=== PATIENT | male | born 2000 | race Caucasian/White ===

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

== ENCOUNTER → 2021-05-23 20:08 | Outpatient (CLI) | payer OTHER, SELFPAY | PROVIDERS: Visit Provider Nurse Practitioner Family | DX: U07.1 COVID-19 (principal); J02.9 Acute pharyngitis, unspecified | CPT/HCPCS: C9803; U0003; U0005 ==

== ENCOUNTER 2022-09-06 15:16 | Emergency (ER) | payer OTHER, SELFPAY ==
[2022-09-06 15:17] VITALS: BP 144/75; PULSE 86; RESP 20; TEMP 38.4; O2SAT 96; BMI 28.7
[2022-09-06 15:41] LABS: UTC Strep Screen (Rapid) Positive (Negative)
--- NOTE | 2022-09-06 15:53 | EXP.UTC ---
Discharge Plan Disposition Patient Disposition: Home, Self-Care Condition: Good Prescriptions Prescriptions: New amoxicillin [amoxicillin] 875 mg tablet 875 mg PO Q12H Qty: 20 0RF [id number] [Bromfed DM] 2-30-10 mg/5 mL Syrup 5 ml PO Q6H PRN (Reason: Cough) Qty: 240 0RF prednisone 10 mg tablet 10 mg PO BID 3 Days Qty: 6 0RF Referrals Follow up/Referrals: Pop Palmer MD [Primary Care Provider] - See instructions Activity Restrictions/Add. Instructions Additional Instructions/Restrictions: Drink plenty of fluids. Take tylenol or ibuprofen for pain or fever. Take the medications as directed. Follow up with your regular doctor. GO TO THE ER FOR ANY WORSENING SYMPTOMS Throw your tooth brush away and get a new one. Clinical Impressions Clinical Impression: Strep throat Instructions Patient Instructions: DI for Strep Throat, Strep Throat Discharge ED Provider: Gino yT [facility] General Stated complaint: sore throat Time Seen by Provider: 09/06/22 15:52 History of Present Illness Provider Complaint: He states that he has had a sore throat for the past 2 days. He has been running a fever since last night. Related Data Previous Rx's Medication Instructions Recorded amoxicillin 875 mg tablet 875 mg PO Q12H #20 tabs 09/06/22 [id number] 5 ml PO Q6H PRN Cough #240 mL 09/06/22 2 mg-30 mg-10 mg/5 mL oral syrup (Bromfed DM) prednisone 10 mg tablet 10 mg PO BID 3 days #6 tabs 09/06/22 Allergies Allergy/AdvReac Type Severity Reaction Status Date / Time No Known Allergies Allergy Verified 09/06/22 15:54 [facility] Disclaimer: The information contained in this section may have been updated after the patient was seen, as this information can be updated by other users. Social History Smoking Status: Never smoker alcohol intake: never current occupational status: student Travel in the last 8 weeks: None ROS Obtained: Yes All systems reviewed & no additional complaints except as documented Constitutional Constitutional: Reports chills and Reports fever(s) Eyes Eyes: Denies eye discharge ENT Ears, Nose, Mouth, and Throat: Reports as per HPI Cardiovascular Cardiovascular: Denies chest pain Respiratory Respiratory: Denies chest congestion and Reports cough Gastrointestinal Gastrointestingal: Reports nausea; Denies abdominal pain, constipation, cramping, diarrhea or vomiting Musculoskeletal Musculoskeletal: Denies arthralgias Integumentary/Breasts Skin/Breast: Denies rash Neurologic Neurologic: Denies paresthesias Physical Exam General General appearance: alert and in no apparent distress Head Head exam: atraumatic, normocephalic and normal inspection Eye Eye exam: Present normal appearance, PERRL and EOMI ENT ENT exam: Present mucous membranes moist and normal external ear exam Expanded ENT Exam TM/Canal exam: Bilateral TM: erythema and bulging Nose exam: Absent sinus tenderness Mouth exam: Present normal external inspection; Absent drooling Teeth exam: Present normal inspection Throat exam: Present tonsillar erythema, tonsillomegaly and tonsillar exudate Neck Neck exam: Present normal inspection, full ROM and trachea midline; Absent tenderness, meningismus or lymphadenopathy Chest Chest inspection: Present normal inspection and symmetric chest wall rise; Absent tenderness Respiratory Respiratory exam: Present normal lung sounds bilaterally; Absent respiratory distress, wheezes or stridor Cardiovascular Cardiovascular exam: Present regular rate and normal rhythm; Absent systolic murmur or diastolic murmur Abdominal Exam Abdominal exam: Present soft and normal bowel sounds; Absent distention, tenderness, guarding, rebound or rigidity Extremities Exam Extremities exam: Present normal inspection and normal capillary refill; Absent calf tenderness Back Exam
[2022-09-06 16:17] VITALS: BP 144/75; PULSE 86; RESP 20; TEMP 37.3; O2SAT 96
== END 2022-09-06 16:17 | disposition home or self-care (01) ==
PROVIDERS: Emergency Provider Nurse Practitioner Family; PCP Internal Medicine Adolescent Medicine
DX: J02.0 Streptococcal pharyngitis (principal)
CPT/HCPCS: 87880; 99204; 99212; G0463

== ENCOUNTER 2023-05-10 09:17 | Emergency (ER) | payer OTHER, SELFPAY ==
[2023-05-10 09:25] VITALS: BP 138/84; PULSE 66; RESP 18; TEMP 36.7; O2SAT 97; BMI 27.9
--- NOTE | 2023-05-10 10:02 | EXP.UTC ---
Discharge Plan Disposition Patient Disposition: Home, Self-Care Condition: Good Prescriptions Prescriptions: No Action clindamycin HCl 300 mg capsule 300 mg PO TID 10 Days Qty: 30 0RF Referrals Follow up/Referrals: Provider,Referral, MD [Primary Care Provider] - See instructions Activity Restrictions/Add. Instructions Additional Instructions/Restrictions: Go straight to Primary Care for further evaluation by Karina Mercer Further care per Karina Hernandez Straight to ER if any life threatening symptoms Clinical Impressions Clinical Impression: Swelling of lymph nodes Discharge ED Provider: Cecilia Chou [facility] [place] General Stated complaint: spot under R arm Mode of Arrival: Ambulatory Source of Information: Patient Limitations: No Limitations Time Seen by Provider: 05/10/23 10:02 Description of Symptoms (Recalled from Triage Doc. by RN): Pt stated that he has a golf ball sized knot in his right arm pit. It just showed up 4 days ago. HEENT Symptoms (Recalled from RN notes): No Resp Symptoms (Recalled from RN notes): No Skin Symptoms (Recalled from RN notes): Yes MS Symptoms (Recalled from RN notes): No Functional Status (Recalled from RN notes): n/a History of Present Illness Provider Complaint: Patient states that he noticed a small spot under his right arm pit area States that he thought it may be a pulled muscle or something but it has continued to get larger over the last 4 days States last night it was large and sore but it has went down some today but he wanted to get it looked at Related Data Previous Rx's Medication Instructions Recorded clindamycin HCl 300 mg capsule 300 mg PO TID 10 days #30 caps 05/10/23 Allergies Allergy/AdvReac Type Severity Reaction Status Date / Time No Known Allergies Allergy Verified 05/10/23 11:16 Worker's Comp Is this a Worker's Comp case?: No [facility] Disclaimer: The information contained in this section may have been updated after the patient was seen, as this information can be updated by other users. Family History (Updated 05/10/23 @ 11:17 by Betsy Mares CMA) Family/Other Coronary artery disease Heart attack Social History Smoking Status: Never smoker alcohol intake: never current occupational status: student Travel in the last 8 weeks: None ROS Obtained: Yes All systems reviewed & no additional complaints except as documented and Yes Systems reviewed as appropriate & no additional complaints except as documented Constitutional Constitutional: Reports system reviewed and no additional complaints, except as documented and Reports as per HPI ENT Ears, Nose, Mouth, and Throat: Reports system reviewed and no additional complaints, except as documented and Reports as per HPI Cardiovascular Cardiovascular: Reports system reviewed and no additional complaints, except as documented and Reports as per HPI Respiratory Respiratory: Reports system reviewed and no additional complaints, except as documented and Reports as per HPI Gastrointestinal Gastrointestingal: Reports system reviewed and no additional complaints, except as documented and as per HPI Integumentary/Breasts Skin/Breast: Reports system reviewed and no additional complaints, except as documented and Reports as per HPI Comments: Patient has large area under his right arm pit area that has got worse over the last 4 days not tender no redness or warmth Physical Exam General General appearance: alert and in no apparent distress Respiratory Respiratory exam: Present normal lung sounds bilaterally; Absent respiratory distress or wheezes Cardiovascular Cardiovascular exam: Present regular rate, normal rhythm and normal heart sounds Expanded Upper Extremity Exam Right: Shoulder exam: Present swelling and other (egg sized area noted under right arm pit, soft no redness no warmth noted patient states that not that tender touch ju
--- NOTE | 2023-05-10 10:04 | US_ITS ---
FINAL REPORT TECHNIQUE: Limited sonographic imaging of the bilateral axilla was obtained. CLINICAL HISTORY: right axilla FINDINGS: There is a dominant right axillary lymph node measuring 4.7 x 2.2 cm. Other enlarged lymph nodes are seen on the right measuring up to 3.4 cm. Left axilla is unremarkable. IMPRESSION: Abnormal right axillary lymph nodes. Correlate with any history of lymphoma or breast cancer. CT correlation highly recommended. Reviewed, Interpreted and Dictated by Vincent Gotti MD Transcribed by Daisy Santoro Authenticated and . [facility]
[2023-05-10 11:10] VITALS: BP 138/84; PULSE 66; RESP 18; TEMP 36.7; O2SAT 97
== END 2023-05-10 11:10 | disposition home or self-care (01) ==
PROVIDERS: Emergency Provider Nurse Practitioner
DX: R59.0 Localized enlarged lymph nodes (principal); R93.89 Abnormal findings on diagnostic imaging of other specified body structures; M79.621 Pain in right upper arm
CPT/HCPCS: 76882; 99212; 99214; G0463

== ENCOUNTER → 2023-05-10 12:26 | Outpatient (CLI) | payer OTHER, SELFPAY ==
--- NOTE | 2023-05-10 13:06 | CT_ITS ---
FINAL REPORT TECHNIQUE: Routine axial images were obtained from the lung apices to below the diaphragm following IV contrast administration. Individualized dose reduction techniques using automated exposure control or adjustment of the mA and/or kV according to the patient size were employed. CLINICAL HISTORY: axillary lymphadenitis COMPARISON: None FINDINGS: No acute lung disease is present. There is soft tissue density in the anterior mediastinum, in this age group likely residual thymus. No pleural or pericardial effusion is seen. There are multiple right axillary masses, the largest measuring up to 3.3 cm and size, likely adenopathy. There is mild stranding surrounding these enlarged nodes. IMPRESSION: Right axillary adenopathy, with mild adjacent stranding. This may represent infection or neoplasm, and tissue sampling may be helpful for further evaluation. Reviewed, Interpreted and Dictated by Vincent Gotti MD Transcribed by Kizzy Torre Authenticated and . [facility]
[2023-05-10 13:19] LABS: Basophils # 0.1 K/mm3 (0-0.2); Basophils % 0.9 % (0.1-2.0); Eosinophils # 0.1 K/mm3 (0.0-0.4); Eosinophils % 1.6 % (0.1-12.0); Hematocrit 43.9 % (42.0-52.0); Hemoglobin 15.8 g/dL (14.1-18.0); Lymphocytes % 33.4 % (10-50); Mean Corpuscular HGB Conc 36.1 g/dL (31.8-35.4); Mean Corpuscular Hemoglobin 30.6 pg (27.0-31.2); Mean Corpuscular Volume 84.9 fl (80-94); Mean Platelet Volume 8.8 fl (7.4-10.4); Monocytes # 0.5 K/mm3 (0.1-1.0); Monocytes % 7.8 % (1.7-9.3); Neutrophils # 3.4 K/mm3 (1.8-7.8); Neutrophils % 56.3 % (37.0-80.0); Platelet Count 171 K/mm3 (142-424); Red Blood Count 5.17 M/mm3 (4.60-6.20); Red Cell Distribution Width 12.9 % (11.5-17.5)
[2023-05-10 13:49] LABS: Alanine Aminotransferase 25 U/L (12-78); Albumin Level 4.9 g/dl (3.5-5.0); Albumin/Globulin Ratio 1.8 (1.1-1.8); Alkaline Phosphatase 70 U/L (38-126); Anion Gap 12.1 mEq/L (5-15); Aspartate Amino Transferase 28 U/L (17-59); Bilirubin,Total 1.3 mg/dl (0.2-1.3); Blood Urea Nitrogen 15 mg/dl (9-20); Calcium 9.1 mg/dl (8.4-10.2); Carbon Dioxide 29 mmol/L (22.0-30.0); Chloride 100 mmol/L (98-107); Estimated Glomerular Filt Rate 106 ml/min (>60); GFR (African American) 128 ML/MIN (>60); Globulin 2.8 g/dL (1.3-3.2); Glucose 89 mg/dl (74-100); Lactate Dehydrogenase 197 U/L (313-618); Potassium 4.1 mmoL/L (3.5-5.1); Sodium 137 mmol/L (136-145); Total Protein,Serum 7.7 g/dl (6.3-8.2)
[2023-05-10 15:39] LABS: Erythrocyte Sedimentation Rate 11 mm/hr (0-15)
[2023-05-11 10:04] LABS: HBsAg Screen Negative (Negative); HCV Ab Non Reactive (Non Reactive); Hep A Ab, IGM Negative (Negative); Hep B Core Ab, IgM Negative (Negative)
[2023-05-11 14:14] LABS: HIV Screen 4th Generation wRfx Non Reactive (Non Reactive)
[2023-05-12 12:45] LABS: Peripheral Smear Review Scanned Result
== END ==
LOC: LAB 12:27
PROVIDERS: PCP Nurse Practitioner Family; Visit Provider Nurse Practitioner Family
DX: R59.9 Enlarged lymph nodes, unspecified; Z11.4 Encounter for screening for human immunodeficiency virus [HIV]
CPT/HCPCS: 36415; 71260; 80053; 80074; 83615; 85025; 85651; 86703; G0432; Q9967

== ENCOUNTER → 2023-05-14 09:05 | Outpatient (CLI) | payer OTHER, SELFPAY ==
--- NOTE | 2023-05-14 09:05 | US_ITS ---
FINAL REPORT CLINICAL HISTORY: RT AXILLARY NODE -- BROOKLYNN CHAPMAN -- PATHOLOGIST PRESENT FINDINGS: Ultrasound guided right axillary lymph node biopsy. HISTORY: right axillary mass. PROCEDURE: After informed consent was obtained and a time-out was performed, the patient was prepped and draped in usual sterile fashion over the anterior neck. Utilizing local anesthesia and sterile technique with a 25-gauge needle, access to the lymph node was obtained. 3 passes were made. In addition, 3 core biopsies were obtained as well.The patient received no conscious sedation. The patient tolerated procedure well and left the department in good condition. IMPRESSION: Status post ultrasound guided biopsy of a tright axillary lymph node without immediate complication. Films reviewed , interpreted and dictated by Dr. Gotti. Transcribed by Juan Nowak PA-C. Reviewed, Interpreted and Dictated by Vincent Gotti MD Transcribed by ADELA Spicer Authenticated and . [facility]
== END ==
LOC: RAD 09:05
PROVIDERS: PCP Nurse Practitioner Family; Visit Provider Nurse Practitioner Family
DX: R59.9 Enlarged lymph nodes, unspecified (principal)
CPT/HCPCS: 10005